=== PATIENT | male | born 1975 | race Caucasian/White ===

== ENCOUNTER 2017-10-08 13:39 | Emergency (ER) | payer BC, OTHER ==
[2017-10-08 14:14] VITALS: BP 129/74
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
== END 2017-10-08 14:32 | disposition home or self-care (01) ==
LOC: UCEAST 13:39
DX: Z77.098 Contact with and (suspected) exposure to other hazardous, chiefly nonmedicinal, chemicals (principal); Z88.5 Allergy status to narcotic agent; Z82.49 Family history of ischemic heart disease and other diseases of the circulatory system
CPT/HCPCS: 99211; G0463

== ENCOUNTER 2018-02-23 11:34 | Emergency (ER) | payer OTHER ==
[2018-02-23] MEDS ORDERED: Raltegravir* 400 MG TAB PO ONE ×2 (12:36→12:50)
[2018-02-23] MEDS ORDERED: Tenofovir/Emtricitab 200/300 * TAB PO ONE ×2 (12:36→12:50)
[2018-02-23] MEDS ORDERED: Tetan/Diph/Pertus SYR(Tdap)* 0.5 ML SYR(BOOSTRIX) use SYR IM ONE (13:00)
[2018-02-23 13:12] LABS: Rapid HIV 1 Nonreactive (Nonreactive)
[2018-02-23 13:19] LABS: Albumin 4.5 g/dL (3.2-5.2); Calcium 9.5 mg/dL (8.6-10.3); Total Bilirubin 0.5 mg/dL (0.2-1.0)
[2018-02-23 13:20] LABS: ABS Basophils 0.1 10^3/ul (0-0.2); ABS Eosinophils 0.1 10^3/ul (0-0.6); ABS Monocytes 0.6 10^3/ul (0-0.8); ABS Neutrophils 2.6 10^3/ul (1.5-7.7); ABS Nucleated RBC 0 10^3/ul; Eosinophil % 2.8 %; Hematocrit 45 % (42-52); Hemoglobin 15.3 g/dl (14.0-18.0); Lymphocyte % 36.9 %; Mean Corpuscular HGB Conc 34 g/dl (31-36); Mean Corpuscular Hemoglobin 31 pg (27-31); Mean Corpuscular Volume 90 fL (80-94); Mean Platelet Volume 8.6 fL (7.4-10.4); Nucleated Red Blood Cells % 0.2; Platelet Count 249 10^3/ul (150-450); Red Blood Count 4.96 10^6/ul (4.00-5.40); Red Cell Distribution Width 13 % (10.5-15); White Blood Count 5.4 10^3/ul (3.5-10.8)
[2018-02-23 13:20] LABS: Potassium 5.1 mmol/L (3.5-5.0)
[2018-02-23 13:25] LABS: Albumin/Globulin Ratio 1.7 (1-3); BUN/Creatinine Ratio 11.3 (8-20); EGFR Non-African American 85.3 (>60); Globulin 2.6 g/dL (2-4); Hepatitis B Surface AB Immune (Immune); Total Protein 7.1 g/dL (6.4-8.9)
[2018-02-23 13:36] LABS: Hepatitis B Surface Antigen Nonreactive (Nonreactive)
[2018-02-23 14:02] LABS: Hepatitis C Antibody Nonreactive (Nonreactive)
[2018-02-23 14:13] VITALS: BP 0/0
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
== END 2018-02-23 14:11 | disposition home or self-care (01) ==
LOC: ED 11:34
DX: Z77.21 Contact with and (suspected) exposure to potentially hazardous body fluids (principal); Z23 Encounter for immunization
CPT/HCPCS: 36415; 80053; 85025; 86703; 86706; 86803; 87340; 90471; 90715; 99283